=== PATIENT | female | born 1985 | race Caucasian/White ===

== ENCOUNTER 2017-02-09 14:35 | Inpatient (IN) | payer BC, OTHER ==
[2017-02-09 15:07] VITALS: BMI 39.6
[2017-02-09] MEDS ORDERED: Lactated Ringer's 1,000 ML IV SCH ×2 (17:04→17:15)
--- NOTE | 2017-02-09 17:28 | OBHP ---
Datetime: 02/09/2017 16:34 IP Adm Impression: Term, intrauterine IP Admit Plan: Initiate labor induction protocol Admit Comment, IP Provider: 31yo g1 edc 02/10 by lmp _ 12 wk us present for induction 2ndary to oligo w/ evert 2.3cm. She has noted feeling wet in vaginal area for past 10days, denies gush of fluid. Ryan es vag bleeding, ctxs. or decreased fm. medic: pnv nkda pmhx _ pshx: denies shx: denies etoh, drugs ro tobacco I: 39.6wks Oligo P: admit for induction cervidel indic for and proced of induct d/w pt. Pelvic Type - PN: Adequate Extremities - PN: Normal Abdomen - PN: Normal Lungs - PN: Normal Neurologic - PN: Normal HEENT - PN: Normal General - PN: Normal Presentation-Admit: Vertex FHR - Baseline A Provider: 140 Membranes, Provider: Intact Comments, ACOG Physical Exam: R-NI; VZ-I; hiv _ rpr neg x2; GBS NEG us: cephalic; anter plac Pool Provider: Negative EGA AdmitDate IP: 39.6 Vital Signs Provider: Within Normal Limits IP Chief Complaint: Scheduled induction of labor NICHD Variability Prov Fetus A: Minimal - Undetectable to <5bpm NICHD Accel Fetus A IP Provider: 15X15 FHR Category Provider Fetus A: Category I NICHD Decel Fetus A IP Provider: None Dilatation, Provider: 0 Effacement, Provider: 30 Station, Provider: -2 Genitourinary Exam: Normal
[2017-02-09 17:35] VITALS: BP 139/79; PULSE 68; RESP 20; TEMP 98.3; O2SAT 99
[2017-02-09 17:55] LABS: BASO % 0.2 % (0.0-2.0); EOS # 0.2 K/uL (0.0-0.7); EOS % 1.3 % (0.0-4.0); HEMATOCRIT 37.2 % (34.0-47.0); LYMPH # 2.3 K/uL (1.0-4.3); LYMPH % 16.2 % (20.0-40.0); MEAN CELL VOLUME 91.5 fl (81.0-99.0); MEAN CORPUSCULAR HEMOGLOBIN 30.5 pg (27.0-31.0); MEAN CORPUSCULAR HGB CONC 33.3 g/dL (33.0-37.0); MEAN PLATELET VOLUME 9.6 fl (7.2-11.7); MONO # 0.6 K/uL (0.0-0.8); MONO % 4.1 % (0.0-10.0); NEUT # 11.1 K/uL (1.8-7.0); NEUT % 78.2 % (50.0-75.0); NRBC % 0.1 % (0.0-0.0); RED CELL DISTRIBUTION WIDTH 13.4 % (11.5-14.5); WHITE BLOOD COUNT 14.2 K/uL (4.8-10.8)
[2017-02-09] MEDS: Lactated Ringer's 1,000 ML IV SCH (19:40)
[2017-02-10] MEDS: Lactated Ringer's 1,000 ML IV SCH (06:22)
[2017-02-10] MEDS ORDERED: Oxytocin 30 units/LR 500ML 30 U/500 ML BAG IV ONE ×2 (10:24→21:40)
[2017-02-10] MEDS ORDERED: Fentanyl/Bupivacaine HCl 250 ML EPI ONE (14:12)
[2017-02-10] MEDS ORDERED: Lactated Ringer's 1,000 ML IV SCH (14:15)
--- NOTE | 2017-02-10 15:36 | OBADHP ---
Datetime: 02/09/2017 16:34 Admit Comment, IP Provider: 31yo g1 edc 02/10 by lmp _ 12 wk us present for induction 2ndary to oligo w/ evert 2.3cm. She has noted feeling wet in vaginal area for past 10days, denies gush of fluid. Ryan es vag bleeding, ctxs. or decreased fm. medic: pnv nkda pmhx _ pshx: denies shx: denies etoh, drugs ro tobacco I: 39.6wks Oligo P: admit for induction cervidel indic for and proced of induct d/w pt. Pelvic Type - PN: Adequate Extremities - PN: Normal Abdomen - PN: Normal Lungs - PN: Normal Neurologic - PN: Normal HEENT - PN: Normal General - PN: Normal Presentation-Admit: Vertex FHR - Baseline A Provider: 140 Membranes, Provider: Intact Contraction Comments Provider: occasional not appreciated by pt Comments, ACOG Physical Exam: SSE: no fluid in vault w/ and w/out valsalva R-NI; VZ-I; hiv _ rpr neg x2; GBS NEG us: cephalic; anter plac cervidel placed @18:00 Pool Provider: Negative Vital Signs Provider: Within Normal Limits IP Chief Complaint: Scheduled induction of labor NICHD Variability Prov Fetus A: Minimal - Undetectable to <5bpm NICHD Accel Fetus A IP Provider: 15X15 FHR Category Provider Fetus A: Category I NICHD Decel Fetus A IP Provider: None Dilatation, Provider: 0 Effacement, Provider: 30 Station, Provider: -2 Genitourinary Exam: Normal EGA AdmitDate IP: 39.6 IP Adm Impression: Term, intrauterine IP Admit Plan: Initiate labor induction protocol
[2017-02-11] MEDS ORDERED: Oxytocin 30 units/LR 500ML 30 U/500 ML BAG IV ONE ×2 (00:08→15:50)
[2017-02-11] MEDS: Lactated Ringer's 1,000 ML IV SCH (02:00)
[2017-02-11] MEDS ORDERED: Lactated Ringer's 1,000 ML IV SCH (07:30)
--- NOTE | 2017-02-11 09:39 | OBPN ---
Datetime: 02/11/2017 09:30 IP Procedures: Intrauterine Pressure Catheter; Sterile Vag Exam IP Progress Plan: Continue present management Membranes, Provider: Ruptured Contraction Comments Provider: Q5-8 FHR - Baseline A Provider: 130 IP Progress Note Comment: G1 at 40+1 wks for induction of labor for oligohydramnios, s/p cervidil an d pitocin IUPC placed, pitocin turned off d/t recurrent decelerations Will observe FHT for now GBS negative NICHD Accel Fetus A IP Provider: 15X15 NICHD Variability Prov Fetus A: Moderate 6-25bpm Dilatation, Provider: 4-5 Effacement, Provider: 80 Station, Provider: -1 NICHD Decel Fetus A IP Provider: Late Datetime: 02/09/2017 16:34 Pool Provider: Negative Presentation-Admit: Vertex Vital Signs Provider: Within Normal Limits FHR Category Provider Fetus A: Category I
[2017-02-11] MEDS ORDERED: Fentanyl/Bupivacaine HCl 250 ML EPI ONE (12:02)
[2017-02-11] MEDS ORDERED: Morphine 1 mg/ml preservative-free Inj(Duramorph) ONE (15:14)
[2017-02-11] MEDS ORDERED: Lidocaine 2% MPF (5 ml) Inj ONE (15:14)
[2017-02-11] MEDS ORDERED: ceFAZolin 2 GM in Sodium Chloride 0.9% 100 ML IVPB ONE (15:15)
[2017-02-11] MEDS ORDERED: Propofol 10 mg/ml Inj (20 ML) ONE ×2 (15:56→16:10)
[2017-02-11] MEDS ORDERED: Naloxone 0.4 mg/ml Inj (Adult) IVP PRN (16:18)
[2017-02-11] MEDS ORDERED: DiphenhydrAMINE 50 mg/ml Inj IVP PRN (16:18)
--- NOTE | 2017-02-11 17:20 | OBDS ---
DELIVERY PERSONNEL Delivery Doctor: Boston Garcia MD Anesthesiologist: Xiang serra MATERNAL INFORMATION Delivery Anesthesia: Epidural Medications in Delivery: Pitocin 30 mu open in 500cc of LR Placenta Cultured: No Maternal Complications: None RN Comments: Atraumatic Delivery of a viable babyboy Primary preformed due to failure to progress. Mother and recovering well. Provider Comments: Pre-op dx: 32 yo G1 at 40+1 wks w/ arrest of dilation Post -op dx: Same Procedure: Primary low transverse section Surgeon: Jose Optometric Technologist: Dr. Vences, the hsopitalist Anesthesia: Dr. Serra Anesthesia: Epidural Findings: Viable male dleivered through clear fluid at 3:49 pm. Apgars 9 and 9. Wt 7#12. EBL 800mL Complications: None LABOR SUMMARY EDC: 02/10/2017 00:00 No. Babies in Womb: 1 Attempted: No Labor Anesthesia: Epidural LABOR INFORMATION Reason for Induction: Oligohydramnios Onset of Labor: 02/11/2017 07:00 Cervical Ripening Agents: Cervidil (Annotations: placed at 18:00) Oxytocin: Augmentation Group B Beta Strep: Negative Antibiotics # of Doses: 1 Antibiotics Time of Last Dose: 1430 Steroids Given: None Reason Steroids Not Administered: Not Applicable Other Reason Not Administered: Not required MEMBRANES Membranes Rupture Method: Artificial Rupture of Membranes: 02/11/2017 09:00 Length of Rupture (hrs): 6.82 Amniotic Fluid Color: No fluid noted Amniotic Fluid Amount: None STAGES OF LABOR Stage 3 hrs: 0 Stage 3 min: 1 Total Time in Labor hrs: 8 Total Time in Labor min: 50 CSECTION DELIVERY Primary Indication: Arrest of Descent Other Primary Indication: intolerance CSection Urgency: Emergency CSection Incidence: Primary CSection Incision: Lower Uterine Transverse BABY A INFORMATION Infant Delivery Date/Time: 02/11/2017 15:49 Method of Delivery: Born in Route : No : N/A Forceps: N/A Vacuum Extraction: N/A Shoulder Dystocia : No SHOULDER DYSTOCIA BABY A Infant Delivery Date/Time: 02/11/2017 15:49 PRESENTATION/POSITION BABY A Presentation: Cephalic Cephalic Presentation: Vertex Breech Presentation: N/A PLACENTA INFORMATION BABY A Placenta Delivery Time : 02/11/2017 15:50 Placenta Method of Delivery: Manual Removal Placenta Status: Delivered SCORES BABY A Heart Rate 1 min: >100 bpm Resp Effort 1 min: Good Cry Reflex Irritability 1 min: Cough or Sneeze or Pulls Away Muscle Tone 1 min: Active Motion Color 1 min: Body [place], Extremities Blue Resuscitation Effort 1 min: N/A SCORE 1 MIN: 9 Heart Rate 5 min: >100 bpm Resp Effort 5 min: Good Cry Reflex Irritability 5 min: Cough or Sneeze or Pulls Away Muscle Tone 5 min: Active Motion Color 5 min: Body [place], Extremities Blue Resuscitation Effort 5 min: N/A SCORE 5 MIN: 9 INFORMATION BABY A Gestational Age at Delivery: 40.0 Gestational Status: Term Outcome : Liveborn Condition : Stable Sex: Male IDENTIFICATION/MEDS BABY A ID Band Number: [id number] ID Band Location: Left Leg; Left Arm WEIGHT/LENGTH BABY A Birthweight (gms): 3530 Weight (lb): 7 Weight (oz): 12 Infant Length Inches: 20.50 Length cms: 52.1 CORD INFORMATION BABY A No. Cord Vessels: 3 Nuchal Cord : N/A Infant Suction: Mouth; Nose ASSESSMENT BABY A Complications: None Physical Findings at Delivery: Within Normal Limits Infant Respirations: Appears Normal Curbstone Setter/ALS Called : No Infant Care By: Dr Steel Transferred To: [facility]
--- NOTE | 2017-02-11 19:19 | OP ---
PROCEDURE DATE: 02/11/2017 PREOPERATIVE DIAGNOSIS: A 32-year-old G1 at 40 weeks and 1 day with arrest of dilation. POSTOPERATIVE DIAGNOSIS: A 32-year-old G1 at 40 weeks and 1 day with arrest of dilation. PROCEDURE: Primary low transverse section. SURGEON: Dr. Lisa Garcia. DIRECTOR OF SALES: Dr. Vences, the hospitalist. Dr. Vences was the banking assistant and participated in the surgery for the entire duration of the case. He helped create exposure. He also helped maintain hemostasis, operated on the side of the patient that was across from him, and assisted in the delivery of the infant by applying fundal pressure. This case could not have been completed without his assistance. ANESTHESIOLOGIST: Dr. Santos. ANESTHESIA: Epidural. FINDINGS: A viable male delivered through clear fluid at 3:49 p.m. Apgars 9 and 9 at 1 and 5 minutes respectively. The weight was 7 pounds 12 ounces. ESTIMATED BLOOD LOSS: 800 mL. COMPLICATIONS: None. DESCRIPTION OF PROCEDURE: The patient was taken to the operating room where the epidural was bolused. A time-out was done. She was prepped and draped in a normal sterile fashion in the dorsal supine position with a leftward tilt. The epidural was tested and found to be adequate. A Pfannenstiel skin incision was then made with a scalpel and carried through to the underlying layer of fascia with the Bovie. The fascia was incised in the midline and the incision was extended laterally with the Bovie. The inferior aspect of the fascial incision was then grasped with Cari clamps, elevated, and the underlying rectus muscles were dissected off bluntly and with De scissors. Attention was then turned to the superior aspect of this incision, which in a similar fashion was grasped, tented up with Cari clamps and the rectus muscles were dissected off bluntly and with the Bovie. The rectus muscles were then in the midline. The peritoneum was identified, tented up and entered sharply with Metzenbaum scissors. The peritoneal incision was then extended superiorly and inferiorly with good visualization of the bladder. The bladder blade was then inserted and the vesicouterine peritoneum was identified, grasped with pickups and entered sharply with Metzenbaum scissors. The incision was then extended laterally and the bladder flap was created digitally. The bladder blade was then removed and lower uterine segment was incised in a transverse fashion with the scalpel. The uterine incision was then extended laterally on the left side with bandage scissors. The bladder blade was removed and the 's head delivered atraumatically. The nose and mouth were suctioned with a bulb suction. The cord was clamped and cut. The infant was handed off to the waiting stone banker. Cord blood was collected. The placenta was delivered as the uterus was massaged. The uterus was exteriorized and cleared of all clots and debris with a dry sponge curettage. The uterine incision was repaired with 0 Vicryl in a running locked fashion. Monocryl was placed in a [id number] in the center of the incision for hemostasis. A second layer of 0 Vicryl was then used in an imbricating fashion to reinforce the incision and for hemostasis. The Bovie was then applied to small bleeders at the edge of the bladder flap. The abdomen was irrigated. The uterus was then returned to the abdomen. The gutters were cleared of all clots. The pyramidalis muscle was reapproximated with a running stitch of 0 chromic. The fascia was then reapproximated with 0 Vicryl in a running fashion. The space of the subcutaneous fat was closed with interrupted stitches of 2-0 plain gut. Skin was then closed in a subcuticular fashion with 4-0 Monocryl. The patient tolerated the procedure well. Sponge, lap, and needle counts were correct. The patient received 2 grams of Ancef prior to the procedure. The patient was taken to the recovery room in stable condition. Lisa Garcia MD cc: [id number] TT: 02/11/2017 19:18:31 zaida MCKOY
[2017-02-11] MEDS: Simethicone 80 mg Chewtab PO SCH (21:40)
[2017-02-12] MEDS: Simethicone 80 mg Chewtab PO SCH ×5 (05:00→21:59)
[2017-02-12] MEDS: Oxycodone/Acetaminophen 5/325 mg Tab PO PRN ×4 (05:48→22:04)
[2017-02-12 06:20] LABS: BASO % 0.1 % (0.0-2.0); EOS # 0.1 K/uL (0.0-0.7); EOS % 0.3 % (0.0-4.0); LYMPH # 1.3 K/uL (1.0-4.3); LYMPH % 7.7 % (20.0-40.0); MEAN CELL VOLUME 91.5 fl (81.0-99.0); MEAN CORPUSCULAR HEMOGLOBIN 30.5 pg (27.0-31.0); MEAN CORPUSCULAR HGB CONC 33.3 g/dL (33.0-37.0); MEAN PLATELET VOLUME 8.6 fl (7.2-11.7); MONO # 0.6 K/uL (0.0-0.8); MONO % 3.4 % (0.0-10.0); NEUT # 15.1 K/uL (1.8-7.0); NEUT % 88.5 % (50.0-75.0); PLATELET COUNT 149 K/uL (130-400); RED CELL DISTRIBUTION WIDTH 13.6 % (11.5-14.5); WHITE BLOOD COUNT 17.1 K/uL (4.8-10.8)
[2017-02-12] MEDS: Prenatal Multivit/Folic Acid/Iron Tab PO SCH (08:29)
[2017-02-12 09:30] LABS: NEUTROPHIL 89 % (42-75); TOTAL CELLS COUNTED 100
--- NOTE | 2017-02-12 11:46 | OBPPN ---
Datetime: 02/12/2017 11:43 PP Pain Prov: Within normal limits PP Nausea Prov: Denies PP Flatus Prov: Yes PP Breasts Prov: Not Done PP Heart Prov: Normal PP Lungs Prov: Normal PP Abdomen/Uterus Prov: Normal PP Lochia Prov: Normal PP Vulva/Perineum Prov: Normal PP CVA Tenderness Prov: Normal PP Extremities Prov: Normal PP C/S Incision Prov: Normal PP Impression Prov: Normal progression PP Plan Prov: Continue present management PP Progress Note Prov: Patient doing well ambulating tolerating diet reports minimal lochia and pain well-controlled Vital signs stable afebrile Uterus firm below the umbilicus Incision clean dry and intact Extremities no Homans Postoperative day #1 Ambulate, advance diet as tolerated, Motrin for analgesia Vital Signs Provider PP: Reviewed
[2017-02-12] MEDS ORDERED: Oxycodone/Acetaminophen 5/325 mg Tab PO PRN ×2 (17:14)
[2017-02-12] MEDS ORDERED: Benzocaine/Menthol SPRAY TOP PRN (17:14)
[2017-02-13] MEDS: Oxycodone/Acetaminophen 5/325 mg Tab PO PRN ×3 (06:50→21:28)
[2017-02-13] MEDS: Simethicone 80 mg Chewtab PO SCH ×4 (06:51→21:50)
--- NOTE | 2017-02-13 07:44 | OBPPN ---
Datetime: 02/13/2017 07:42 PP Pain Prov: Within normal limits PP Nausea Prov: Denies PP Flatus Prov: Yes PP Breasts Prov: Not Done PP Heart Prov: Normal PP Lungs Prov: Normal PP Abdomen/Uterus Prov: Normal PP Lochia Prov: Not Done PP Vulva/Perineum Prov: Not Done PP CVA Tenderness Prov: Normal PP Extremities Prov: Normal PP C/S Incision Prov: Normal PP Impression Prov: Normal progression PP Plan Prov: Continue present management PP Progress Note Prov: Patient doing well ambulating tolerating diet reports minimal lochia. We'll w ell-controlled Vital signs stable afebrile Uterus firm below the umbilicus Incision clean dry and intact Extremities no Homans Post operative day #2 Ambulation, regular diet, Motrin as needed, anticipate discharge tomorrow Vital Signs Provider PP: Reviewed
[2017-02-13] MEDS: Prenatal Multivit/Folic Acid/Iron Tab PO SCH (08:18)
[2017-02-13 09:16] LABS: HEMATOCRIT 31.1 % (34.0-47.0); MEAN CORPUSCULAR HEMOGLOBIN 30.4 pg (27.0-31.0); WHITE BLOOD COUNT 17.9 K/uL (4.8-10.8)
[2017-02-13] MEDS: Lansinoh for Breast Feeding Mothers TP PRN (12:29)
[2017-02-14] MEDS: Simethicone 80 mg Chewtab PO SCH ×3 (05:13→10:08)
[2017-02-14] MEDS: Prenatal Multivit/Folic Acid/Iron Tab PO SCH (08:32)
[2017-02-14] MEDS: Lansinoh for Breast Feeding Mothers TP PRN (08:33)
[2017-02-14] MEDS ORDERED: Measles, Mumps, and Rubella 0.5 ML VIAL SC ONE ×2 (10:09→14:00)
--- NOTE | 2017-02-14 11:25 | OBPPN ---
Datetime: 02/14/2017 11:22 PP Pain Prov: Within normal limits PP Nausea Prov: Denies PP Flatus Prov: Yes PP Breasts Prov: Not Done PP Heart Prov: Normal PP Lungs Prov: Normal PP Abdomen/Uterus Prov: Normal PP Lochia Prov: Not Done PP Vulva/Perineum Prov: Not Done PP CVA Tenderness Prov: Normal PP Extremities Prov: Normal PP C/S Incision Prov: Normal PP Impression Prov: Normal progression PP Plan Prov: Continue present management PP Progress Note Prov: Patient and well pain well controlled ambulating tolerating diet without diff iculty Vital signs stable Uterus firm below the umbilicus Incision clean dry and intact Extremities no Homans Postoperative day #3 Patient cleared for discharge Follow-up with Dr. Vivienne Meneses in 1 week Nothing per vagina no heavy lifting Vital Signs Provider PP: Reviewed
--- NOTE | 2017-02-14 11:25 | OBDCSUM ---
Datetime: 02/14/2017 08:08 Discharged to, Provider: home Follow up at, Provider: OBGYN Disch Instr Activity: Normal activity Disch Instr Diet: Regular Discharge Instructions, Provider: Routine instructions given Discharge Diagnosis, Provider: Term Delivered Follow up in weeks, Provider: 1 week Disch Referrals: None Contraception discussed, Prov: Yes Disch Activity Restrictions: No exercising; No lifting Discharge Comment, Provider: Cleared for discharge Contraception after Delivery: Undecided
== END 2017-02-14 13:15 | disposition home or self-care (01) | DRG 765 ==
LOC: H.EROB2 14:35 → H.L&D 17:04 → H.OB/GYN 02-11 20:20
PROVIDERS: ADMIT Obstetrics & Gynecology; ATTEND Obstetrics & Gynecology
PROC: 4A1HXCZ Monitoring of Products of Conception, Cardiac Rate, External Approach (ICD-10-PCS; 2017-02-09)
PROC: 10D00Z1 Extraction of Products of Conception, Low, Open Approach (ICD-10-PCS; principal; 2017-02-11)
DX: O76 Abnormality in fetal heart rate and rhythm complicating labor and delivery (principal); O41.03X0 Oligohydramnios, third trimester, not applicable or unspecified; Z37.0 Single live birth; O48.0 Post-term pregnancy; O62.1 Secondary uterine inertia; Z3A.40 40 weeks gestation of pregnancy